=== PATIENT | male | born 1935 | race Caucasian/White ===

== ENCOUNTER 2017-05-11 07:46 | Inpatient (IN) | payer OTHER, MEDICARE ==
[~2017-05-11] VITALS: Ht 172.7 cm; Wt 79.8 kg
[2017-05-11] MEDS ORDERED: SODIUM CHLORIDE 0.9% 1,000 ML IV ONE (08:55)
[2017-05-11 09:22] LABS: BG BASE EXCESS 4.6 mmol/L (-2.0-2.0); BG CARBOXYHEMOGLOBIN 0.3 % (0.5-1.5); BG DEOXYHEMOGLOBIN 2.1 % (0.0-5.0); BG FRACTION INSPIRED OXYGEN 99.8; BG HCO3 ACT 30.8 mmol/L (22.0-26.0); BG METHEMOGLOBIN 0.2 % (0.0-1.5); BG OXYGEN SATURATION 97.9 % (92.0-98.5); BG OXYHEMOGLOBIN 97.4 % (94.0-97.0); BG PCO2 53.8 mmHg (35.0-45.0); BG PH 7.375 (7.350-7.450); BG PO2 125.2 mmHg (75.0-100.0); BG SAMPLE SITE LEFT RADIAL; BG TOTAL HEMOGLOBIN 10.3 g/dL (12.0-18.0); BG VENT MODE MASK - NRB
[2017-05-11 09:48] LABS: HEMATOCRIT. 28.3 % (42.0-52.0); HEMOGLOBIN. 9.6 g/dL (14.0-18.0); MEAN CORPUSCULAR HEMOGLOBIN 32.8 pg (28.0-32.0); MEAN CORPUSCULAR VOLUME 96.9 fL (80.0-94.0); MEAN PLATELET VOLUME 7.5 fl (7.4-10.4); PLATELET 229 x1000/uL (130-400); RED BLOOD CELL COUNT 2.92 mill/uL (4.7-6.1); RED CELL DISTRIBUTION WIDTH 18.3 % (11.6-14.6)
[2017-05-11 09:54] LABS: CHLORIDE 93 mEq/L (98-107)
[2017-05-11 09:58] LABS: AMMONIA 18 uMol/L (<32)
[2017-05-11 10:05] LABS: CARBON DIOXIDE 31 mEq/L (21-32); CREATINE KINASE 57 IU/L (39-308); ETHANOL BLOOD < 10 mg/dL; TROPONIN I 0.13 ng/mL (0.00-0.04)
[2017-05-11 10:16] LABS: CLARITY URINE CLEAR (CLEAR); COLOR URINE YELLOW (YELLOW); GLUCOSE URINE NEGATIVE (NEGATIVE); KETONES URINE NEGATIVE (NEGATIVE); LEUKOCYTE ESTERASE URINE NEGATIVE (NEGATIVE); NITRITE URINE NEGATIVE (NEGATIVE); OCCULT BLOOD URINE TRACE (NEGATIVE); PH URINE 5.5 (4.5-8.0); PROTEIN URINE NEGATIVE (NEGATIVE); SPECIFIC GRAVITY URINE 1.016 (1.005-1.030)
[2017-05-11 10:40] LABS: PLATELET ESTIMATE NORMAL
[2017-05-11 10:59] LABS: *AMPHETAMINES SCREEN URINE NEGATIVE (NEGATIVE); *BARBITURATES SCREEN URINE NEGATIVE (NEGATIVE); *BENZODIAZEPINES SCREEN URINE NEGATIVE (NEGATIVE); *COCAINE SCREEN URINE NEGATIVE (NEGATIVE); CANNABINOID URINE SCREEN NEGATIVE (NEGATIVE); METHADONE URINE SCREEN PRESUMTIVE POSITIVE (NEGATIVE); OPIATES URINE SCREEN NEGATIVE (NEGATIVE); PHENCYCLIDINE URINE SCREEN NEGATIVE (NEGATIVE)
[2017-05-11] MEDS ORDERED: MORPHINE SULFATE 4 MG/ML CPJ (NOT FOR IM USE) IV ONE (13:15)
[2017-05-11] MEDS ORDERED: ONDANSETRON HCL 4MG/2ML VIAL IV ONE (13:15)
[2017-05-11] MEDS ORDERED: ASPIRIN 325MG TABLET PO ONE (13:30)
[2017-05-11] MEDS ORDERED: IOHEXOL-350 100 ML BOTTLE ONE (14:46)
[2017-05-11] MEDS ORDERED: SODIUM CHLORIDE 0.9% 10ML VIAL ONE (14:46)
[2017-05-11] MEDS ORDERED: ACETAMINOPHEN 325MG TABLET PO PRN (15:15)
[2017-05-11] MEDS ORDERED: IPRATROPIUM/ALBUTEROL 0.5-3(2.5)MG/3ML NEB INH PRN (15:15)
[2017-05-11] MEDS ORDERED: HYDROCODONE/ACETAMINOPHEN 5/325MG TABLET PO PRN (15:15)
[2017-05-11] MEDS ORDERED: CLONIDINE 0.1MG TABLET PO PRN (15:15)
[2017-05-11 16:00] VITALS: BP 134/63
[2017-05-11] MEDS: DEXT 5%/0.45% NACL 1000ML 1,000 ML IV SCH (17:15)
[2017-05-11 20:00] VITALS: BP 132/66
[2017-05-11] MEDS ORDERED: LEVOFLOXACIN 500MG PREMIX 100 ML IV SCH (20:00)
[2017-05-11 20:30] VITALS: BP 132/66
[2017-05-11] MEDS: MORPHINE SULFATE 4 MG/ML CPJ (NOT FOR IM USE) IV PRN (21:17)
[2017-05-11] MEDS ORDERED: GABA-290 PO (22:23)
[2017-05-11] MEDS ORDERED: LISI-604 PO (22:23)
[2017-05-11] MEDS ORDERED: DOCU-138 PO (22:23)
[2017-05-11] MEDS ORDERED: AMLO10TA80 PO (22:23)
[2017-05-11] MEDS ORDERED: SENN8.6T21 PO (22:23)
[2017-05-11] MEDS ORDERED: METH5TAB2 PO (22:23)
[2017-05-11] MEDS ORDERED: ONDA8TAB13 PO (22:23)
[2017-05-11 23:42] LABS: TROPONIN I 0.12 ng/mL (0.00-0.04)
[2017-05-12] VITALS: BP 132/68
[2017-05-12] MEDS: MORPHINE SULFATE 4 MG/ML CPJ (NOT FOR IM USE) IV PRN ×2 (01:22→13:59)
[2017-05-12 04:00] VITALS: BP 130/66
[2017-05-12] MEDS: DEXT 5%/0.45% NACL 1000ML 1,000 ML IV SCH ×2 (06:10→21:52)
[2017-05-12 07:05] LABS: BASOPHILS % 0.6 % (0.0-2.0); EOSINOPHILS % 2.1 % (0.0-5.0); HEMATOCRIT. 26.4 % (42.0-52.0); LYMPHOCYTES % 10.9 % (20.0-50.0); MEAN CORPUSCULAR HEMOGLOBIN 32.8 pg (28.0-32.0); MEAN PLATELET VOLUME 7.9 fl (7.4-10.4); MONOCYTES % 13.4 % (2.0-8.0); PLATELET 210 x1000/uL (130-400); RED BLOOD CELL COUNT 2.75 mill/uL (4.7-6.1); RED CELL DISTRIBUTION WIDTH 17.9 % (11.6-14.6)
[2017-05-12 07:33] LABS: CHLORIDE 92 mEq/L (98-107)
[2017-05-12 07:44] LABS: CARBON DIOXIDE 29 mEq/L (21-32); HDL CHOLESTEROL 49 mg/dL (40-59); LDL CHOLESTEROL 71 mg/dL (5-100); T4 FREE 1.47 ng/dL (0.76-1.46)
[2017-05-12 07:56] LABS: TROPONIN I 0.12 ng/mL (0.00-0.04)
[2017-05-12 08:00] VITALS: BP 149/69
[2017-05-12] MEDS: ENOXAPARIN 40MG/0.4ML SYR SUBCUT SCH (08:38)
[2017-05-12 12:00] VITALS: BP 150/69
[2017-05-12 16:00] VITALS: BP 146/80
[2017-05-12] MEDS ORDERED: LACTULOSE 20G/30ML UDC PO ONE (18:00)
[2017-05-12] MEDS ORDERED: NA PHOS,M-B/NA PHOS,DI-BA ENEMA 118ML PR PRN (18:15)
[2017-05-12] MEDS ORDERED: HALOPERIDOL 1MG TABLET PO PRN (18:15)
[2017-05-12] MEDS ORDERED: LACTULOSE 20G/30ML UDC PO NR (18:15)
[2017-05-12] MEDS ORDERED: BISACODYL 5MG TABLET PO PRN (18:15)
[2017-05-12 20:00] VITALS: BP 161/77
[2017-05-12] MEDS ORDERED: LEVOFLOXACIN 500MG PREMIX 100 ML IV SCH (20:00)
[2017-05-13] VITALS: BP 156/80
[2017-05-13 04:00] VITALS: BP 154/74
[2017-05-13] MEDS: ONDANSETRON HCL 4MG/2ML VIAL IV PRN ×2 (04:30→12:21)
[2017-05-13] MEDS: MORPHINE SULFATE 4 MG/ML CPJ (NOT FOR IM USE) IV PRN (04:32)
[2017-05-13 08:00] VITALS: BP 143/75
[2017-05-13] MEDS: ENOXAPARIN 40MG/0.4ML SYR SUBCUT SCH (08:59)
[2017-05-13] MEDS: DEXT 5%/0.45% NACL 1000ML 1,000 ML IV SCH (09:06)
[2017-05-13 12:00] VITALS: BP 153/66
[2017-05-13 15:27] VITALS: BP 126/72
[2017-05-13 16:00] VITALS: BP 159/76
== END 2017-05-13 18:10 | disposition home or self-care (01) | DRG 91 ==
LOC: ER 08:25 → 5WST 13:21 → EDBEDREQ 13:27 → ENRESERV 15:51
PROVIDERS: ADMIT Internal Medicine; ATTEND Internal Medicine
DX: G92 Toxic encephalopathy (principal); E43 Unspecified severe protein-calorie malnutrition; R65.11 Systemic inflammatory response syndrome (SIRS) of non-infectious origin with acute organ dysfunction; C79.51 Secondary malignant neoplasm of bone; F05 Delirium due to known physiological condition; C85.90 Non-Hodgkin lymphoma, unspecified, unspecified site; E88.09 Other disorders of plasma-protein metabolism, not elsewhere classified; C16.9 Malignant neoplasm of stomach, unspecified; E87.1 Hypo-osmolality and hyponatremia; D64.9 Anemia, unspecified; I10 Essential (primary) hypertension; R09.02 Hypoxemia; K59.00 Constipation, unspecified; Z51.5 Encounter for palliative care; Z68.26 Body mass index [BMI] 26.0-26.9, adult
CPT/HCPCS: 36415; 36600; 51702; 70450; 70551; 71010; 71275; 80053; 80061; 80305; 81001; 82140; 82375; 82550; 82805; 83605; 83880; 84439; 84443; 84484; 85025; 87040; 93005; 93306; 93880; 96361; 96374; 96375; 97116; 97162; 97530; 99285; A4216; A6261; G0482; J1650; J1956; J2270; J2405; J7030; Q9967; A4315